=== PATIENT | female | born 2000 | race Caucasian/White ===

== ENCOUNTER 2022-01-11 15:54 | Emergency (ER) | payer OTHER, SELFPAY ==
--- NOTE | ~2022-01-11 | US_ITS ---
EXAMINATION: US OB <=14 wk fetus w TV INDICATION: Vaginal bleeding. History of prior miscarriages and ectopic pregnancies. TECHNIQUE: Sonography of the pelvis was performed by transabdominal and transvaginal techniques. COMPARISON: None. RESULT: Uterus: Orientation: Anteverted. 10.9 x 6.2 x 6.7 cm. Myometrium: homogeneous echogenicity. The cerv ix measures 5.3 cm. The internal os appears to be closed. There is fluid in the midportion of the end ocervical canal. Gestation: - Intrauterine gestational sac: Single present. - Yolk sac: Present, not directly measured. - Embryo: Single present. - [place] rump length: 2.46 cm, corresponding gestational age 9 weeks, 1 days. -Gestational heart rate: present 166 bpm. -Subgestational hematoma: Absent. Right ovary: 4.7 x 3.2 x 2.7 cm. Vascular flow is present. 2.5 cm right ovarian cyst. 1.8 cm corpus luteal cyst. Left ovary: 3.4 x 2.0 x 2.0 cm. Vascular flow is present. . Pelvis free fluid: Small volume free pelvic fluid. IMPRESSION: Single, live intrauterine gestation. The cervix is long with a closed internal os. Fluid noted in the midportion of the endocervical canal. Estimated Gestational Age: 9 weeks, 1 days by crown rump length. ANTONIO by ultrasound 08/15/2022. Reviewed, dictated and finalized at location [facility]. IMPRESSION: Single, live intrauterine gestation. The cervix is long with a closed internal os. Fluid noted in the midportion of the endocervical canal. Estimated Gestational Age: 9 weeks, 1 days by crown rump length. ANTONIO by ultras ound 08/15/2022.
[2022-01-11 15:59] VITALS: BP 135/87; PULSE 108; RESP 22; TEMP 36.8; O2SAT 100
[2022-01-11 17:18] VITALS: BP 121/67; PULSE 94; RESP 18; O2SAT 100
--- NOTE | 2022-01-11 17:34 | ED.FEMALEGU ---
HPI - Female Genitourinary General Chief complaint: Vaginal Bleeding Stated complaint: 10 weeks, vag bleeding Time Seen by Provider: 01/11/22 17:28 History of Present Illness HPI Narrative: Patient is a 21-year-old female here for evaluation of vaginal bleeding. She is currently about 10 weeks and follows with an OB at [facility], Dr. Chaudhry. She states that today she noticed a large amount of vaginal blood in her underwear. Denies any blood clots in her discharge or abdominal pain. She contacted her OB who recommended ED evaluation. No nausea, vomiting, fevers or chills. 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 She is A+ blood type. Review of Systems Review of Systems: Gen.: Denies fevers or chills Eyes: Denies eye pain or visual change ENT: Denies congestion Respiratory: Denies shortness of breath or cough CV: Denies chest pain or palpitations GI: Denies abdominal pain nausea, emesis or diarrhea reports vaginal bleeding. Denies burning, urgency, frequency or hematuria Musculoskeletal: Denies back pain or muscle pain Neuro: Denies numbness, tingling, weakness or focal weakness Skin: Denies rash Except as documented, all other systems reviewed and negative Exam Narrative: APPEARANCE: Well appearing, no pain in distress, well-nourished. Head: Normocephalic and atraumatic. EYES: PERRLA/EOMI, conjunctivae clear NOSE: No nasal drainage EARS: External ear normal in appearance THROAT: Oropharynx is clear. Mucous membranes are moist. NECK: Supple. No adenopathy, no masses. RESPIRATORY: Airway patent, respirations nonlabored. Clear to auscultation bilaterally, no rales, rhonchi, wheezing. CARDIOVASCULAR: Regular rate and rhythm without murmurs, rubs, or gallops. : scant amount of blood noted in vaginal vault, cervical os is closed ABDOMINAL: Normoactive bowel sounds. Soft, nontender, nondistended. No rebound tenderness or guarding. MUSCULOSKELETAL: Extremities are warm and well-perfused. Moves all extremities well. No edema. NEURO: Normal speech. No focal neurologic deficits. SKIN: Skin is warm and dry. No rashes. PSYCHIATRIC: Normal affect/mood. Course Consultations Consultation #1: Spoke with Dr. Torres, on-call [employer] [facility] for patient's office, agrees with plan for close outpatient follow-up, no other intervention indicated at this time aside from pelvic rest Date: 01/11/22 Time: 19:56 Vital Signs Vital signs: Vital Signs Temperature 98.2 F 01/11/22 15:59 Pulse Rate 108 H 01/11/22 15:59 Respiratory Rate 22 H 01/11/22 15:59 Blood Pressure 135/87 01/11/22 15:59 Pulse Oximetry 100 01/11/22 15:59 Oxygen Delivery Room Air 01/11/22 15:59 Temperature 98.2 F 01/11/22 15:59 Pulse Rate 94 01/11/22 17:18 Respiratory Rate 18 01/11/22 17:18 Blood Pressure 121/67 01/11/22 17:18 Pulse Oximetry 100 01/11/22 17:18 Oxygen Delivery Room Air 01/11/22 15:59 MDM - Female Genitourinary MDM Narrative Medical decision making narrative: 21-year-old G8, P0 female here for evaluation vaginal bleeding while she is about 9 weeks by LMP. She is nontoxic-appearing with normal vital signs, no abdominal pain on exam. Hemoglobin and hematocrit are normal. She is A+, no need for RhoGAM. Her quant is 79,000. Pelvic exam reveals scant amount of blood in the vaginal vault, no evidence of brisk bleed; the cervical os is closed. Ultrasound obtained which shows single live IUP. Spoke with On-call for her OB, agrees with plan for discharge at this time. Recommends pelvic rest and close follow-up. She was given reasons to return to the ED and she voiced understanding. Lab Data Result diagrams: 01/11/22 17:29 Labs: Lab Results 01/11/22 01/11/22 01/11/22 Range/Units 17:29 17:29 17:31 WBC 11.8 H (4.5-10.0) K/mm3 RBC 4.42 (4.2-5.4) M/mm3 Hgb 13.5 (12.0-15.0) g/dL Hct 39.4 (37.0-47.0) % MCV 89.1 (80-100) fl MCH 30.5 (26-3
[2022-01-11 17:39] LABS: Basophils Absolute Auto 0.1 K/mm3 (0.0-0.1); Basophils Percent Auto 0.4 % (0.2-1.2); Eosinophils Absolute Auto 0.2 K/mm3 (0-0.3); Eosinophils Percent Auto 1.3 % (0-4.4); Hematocrit 39.4 % (37.0-47.0); Hemoglobin 13.5 g/dL (12.0-15.0); Immature Granulocyte Absolute 0.05 K/mm3 (0.00-0.031); Immature Granulocyte Percent A 0.4 % (0-0.5); Lymphocytes Absolute Auto 2.13 K/mm3 (0.9-3.2); Mean Corpuscular HGB Conc 34.3 g/dl (32-36); Mean Corpuscular Hemoglobin 30.5 pg (26-34); Mean Corpuscular Volume 89.1 fl (80-100); Monocytes Absolute Auto 0.5 K/mm3 (0.1-0.6); Monocytes Percent Auto 4.4 % (2.6-8.5); Neutrophils Absolute Auto 8.9 K/mm3 (1.3-6.7); Neutrophils Percent Auto 75.5 % (45.5-73.1); Platelet Count Result 301 k/mm3 (150-375); Red Blood Count 4.42 M/mm3 (4.2-5.4); Red Cell Distribution Width 12.7 % (11.5-14.5); White Blood Count 11.8 K/mm3 (4.5-10.0)
== END 2022-01-11 20:14 | disposition home or self-care (01) ==
PROVIDERS: Emergency Medicine; Emergency Provider General Practice; PCP Family Medicine
DX: O20.0 Threatened abortion (principal); Z3A.12 12 weeks gestation of pregnancy
CPT/HCPCS: 36415; 76801; 76817; 84702; 85025; 85461; 99284